=== PATIENT | female | born 1955 | race African-American/Black ===

== ENCOUNTER 2019-07-26 21:01 | Inpatient (IN) | payer BC ==
[2019-07-26] MEDS ORDERED: ACETAMINOPHEN 325 MG TABLET PO ONE (21:22)
[2019-07-26 21:38] LABS: HEMATOCRIT 39.2 % (36.0-47.0); HEMOGLOBIN 13.3 g/dL (12.0-15.5); MEAN CORPUSCULAR HEMOGLOBIN 28.9 pg (27.0-33.4); MEAN CORPUSCULAR HGB CONC 33.9 g/dL (32.0-36.0); MEAN CORPUSCULAR VOLUME 86 fl (80-97); PLATELET COUNT 260 10^3/uL (150-450); RED BLOOD COUNT 4.58 10^6/uL (3.72-5.28); RED CELL DISTRIBUTION WIDTH 14.7 % (11.5-14.0); WHITE BLOOD COUNT 21.4 10^3/uL (4.0-10.5)
[2019-07-26 21:41] LABS: APPEARANCE,URINE CLOUDY; BILIRUBIN,URINE NEGATIVE (NEGATIVE); COLOR,URINE DARK YELLOW; GLUCOSE, URINE NEGATIVE (NEGATIVE); KETONES,URINE TRACE mg/dL (NEGATIVE); PROTEIN,URINE >=500 mg/dL (NEGATIVE); URINE SPECIFIC GRAVITY 1.012; UROBILINOGEN,URINE NEGATIVE mg/dL (<2.0)
[2019-07-26 22:05] LABS: ABSOLUTE LYMPHOCYTES# (MANUAL) 3.2 10^3/uL (0.5-4.7); ABSOLUTE MONOCYTES # (MANUAL) 1.3 10^3/uL (0.1-1.4); BASOPHILS % (MANUAL) 0 % (0-2); EOSINOPHILS % (MANUAL) 0 % (0-6); LYMPHOCYTES % (MANUAL) 15 % (13-45); MONOCYTES % (MANUAL) 6 % (3-13); SEGMENTED NEUTROPHILS % (MAN) 79 % (42-78); TOTAL CELLS COUNTED 100
[2019-07-26 22:06] LABS: ANISOCYTOSIS SLIGHT; OVALOCYTES SLIGHT; PLATELET COMMENT ADEQUATE; POIKILOCYTOSIS SLIGHT; TEAR DROP CELLS SLIGHT; TOXIC GRANULATION 1+; TOXIC VACUOLATION PRESENT
[2019-07-26] MEDS ORDERED: NORMAL SALINE 1000 ML 2,000 ML IV PRN (22:07)
--- NOTE | 2019-07-26 22:20 | RADIOLOGY REPORT (SQ) ---
CLINICAL INDICATION: fever. TECHNIQUE: A single portable AP view was obtained of the chest at 2203 hours. COMPARISON: None. FINDINGS: The cardiomediastinal silhouette is prominent. The lungs demonstrate streaky airspace disease right base. No evidence of effusion or pneumothorax. The visualized bones are unremarkable. Chronic parenchymal lung change. IMPRESSION: Streaky airspace disease right base, of unknown chronicity.
--- NOTE | 2019-07-26 22:21 | ER Document Report ---
ED General - General Chief Complaint: Fever Stated Complaint: FEVER AND ALTERED MENTAL STATUS Time Seen by Provider: 07/26/19 22:05 Mode of Arrival: Medic Information source: Patient Notes: 63-year-old woman presents to the emergency department with a history of passed a kidney stone yesterday, she states that she began feeling sick soon afterwards. Today she was noted by family to have altered mental status presents with a fever 104 rectal and decreased responsiveness. - Related Data Allergies/Adverse Reactions: No Known Allergies Allergy (Unverified 07/26/19 21:30) Past Medical History - Social History Smoking Status: Unknown if Ever Smoked Family History: Reviewed & Not Pertinent Patient has homicidal ideation: No Review of Systems - Review of Systems Notes: Constitutional: + Fever. HENT: Negative for sore throat. Eyes: Negative for visual changes. Cardiovascular: Negative for chest pain. Respiratory: Negative for shortness of breath. Gastrointestinal: Negative for abdominal pain, vomiting or diarrhea. Genitourinary: Negative for dysuria. Musculoskeletal: Negative for back pain. Skin: Negative for rash. Neurological: Negative for headaches, weakness or numbness. 10 point ROS negative except as marked above and in HPI. Physical Exam - Vital signs Vitals: Resp Pulse Ox 24 H 98 07/26/19 21:06 07/26/19 21:06 - Notes Notes: PHYSICAL EXAMINATION: Physical Exam: General: Ill appearing 63-year-old woman in no acute distress HEENT: NC/AT, pupils equal round and reactive to light, MM moist,nares clear, oropharynx clear, airway patent Neck: supple, no adenopathy, no masses. Good range of motion Lungs: clear, no wheezing, no rales no rhonchi CVS: Tachycardic rate and rhythm no murmur gallop or rub Abdomen: Soft, active, nontender, no masses, no hepatosplenomegaly Ext: No edema, clubbing or cyanosis. Neuro: Alert and responsive, moving all 4 extremities on command, cranial nerves intact, no focal findings Skin: Intact no open lesions, no rash PSYCH: Normal mood, normal affect. Course - Re-evaluation Re-evalutation: 07/26/19 22:07 63-year-old who presents with altered mental status and fever, sepsis evaluation begun. Patient has received a total of 3 L of normal saline IV, given Zosyn, blood pressure stable, lactate 2.3. Chest x-ray clear urine reveals a signs of infection, CT scan is performed to exclude a intra-extrarenal signs of infection. 07/27/19 03:44 I discussed the patient with Dr. Horne, will admit the patient to the IMCU if CT scan is not remarkable for perirenal abscess or signs of obstruction. - Vital Signs Vital signs: Temp Pulse Resp BP Pulse Ox 98.7 F 76 21 H 149/76 H 98 07/28/19 11:59 07/28/19 11:59 07/28/19 11:59 07/28/19 11:59 07/28/19 11:59 - Laboratory Result Diagrams: 07/28/19 04:50 07/28/19 04:50 Laboratory results interpreted by me: 07/26/19 07/26/19 07/26/19 20:37 21:00 22:04 WBC 21.4 H RDW 14.7 H Seg Neuts % (Manual) 79 H Abs Neuts (Manual) 16.9 H BUN Glucose POC Glucose 165 H Lactic Acid Urine Protein >=500 H Urine Ketones TRACE H Urine Blood LARGE H Leukocyte Esterase Rfl LARGE H 07/26/19 07/26/19 07/27/19 22:13 22:15 04:02 WBC RDW Seg Neuts % (Manual) Abs Neuts (Manual) BUN 21 H Glucose 148 H POC Glucose Lactic Acid 2.3 H 2.5 H Urine Protein Urine Ketones Urine Blood Leukocyte Esterase Rfl - Diagnostic Test Radiology reviewed: Image reviewed, Reports reviewed - Chest x-ray: No acute cardiopulmonary findings. CT renal scan: Mild left hydronephrosis with out definite identifiable cause or ureteral stone. There is also left perinephric stranding. Findings may be related to a recently passed left sided stone versus left renal infection and correlate with urinalysis. Critical Care Note - Critical Care Note Total time excluding time spent on procedures (mins): 60 - Critical care time spent obtaining history from patient or surrogate, discussions with consultants, development of treatment plan with patient or surrogate, evaluation of patient's response to treatment, examination of patient, ordering and performing treatments and interventions, ordering and review of laboratory studies, re- evaluation of patient's condition, ordering and review of radiographic studies and review of old charts Discharge - Discharge Clinical Impression: Sepsis Qualifiers: Sepsis type: sepsis due to unspecified organism Sepsis acute organ dysfunction status: unspecified Qualified Code(s): A41.9 - Sepsis, unspecified organism Urinary tract infection Qualifiers: Urinary tract infection type: site unspecified Hematuria presence: with hematuria Qualified Code(s): N39.0 - Urinary tract infection, site not specified Leukocytosis Qualifiers: Leukocytosis type: bandemia Qualified Code(s): D72.825 - Bandemia Condition: Stable Disposition: ADMITTED INPATIENT Admitting Provider: Ozzie (Hospitalist) Unit Admitted: [facility]
[2019-07-26 22:37] LABS: INTERNATIONAL RATION (INR) 1.17
[2019-07-26 22:47] LABS: VENOUS BLOOD BASE EXCESS -0.4 mmol/L; VENOUS BLOOD HCO3 24.6 mmol/L (20-32); VENOUS BLOOD PCO2 41.8 mmHg (35-63); VENOUS BLOOD PH 7.39 (7.30-7.42)
[2019-07-26 22:50] LABS: ALKALINE PHOSPHATASE 54 U/L (38-126); ANION GAP 10 (5-19); ASPARTATE AMINO TRANSFERASE 28 U/L (14-36); BILIRUBIN,DIRECT 0.1 mg/dL (0.0-0.4); BILIRUBIN,TOTAL 0.6 mg/dL (0.2-1.3); BLOOD UREA NITROGEN 21 mg/dL (7-20); CALCIUM 9.3 mg/dL (8.4-10.2); CARBON DIOXIDE 23 mmol/L (22-30); CHLORIDE 106 mmol/L (98-107); GLUCOSE 148 mg/dL (75-110); POTASSIUM 3.7 mmol/L (3.6-5.0); TOTAL PROTEIN 7.5 g/dL (6.3-8.2)
[2019-07-27] MEDS ORDERED: PIPERACILLIN/TAZOBACTAM 4.5 GM VIAL IV ONE ×2 (00:03→05:16)
[2019-07-27] MEDS: PIPERACILLIN SODIUM/TAZOBACTAM 4.5 GM in NORMAL SALINE 100 ML IV SCH ×4 (00:52→17:17)
[2019-07-27] MEDS ORDERED: HYDRALAZINE HCL INJ/PF 20 MG/1 ML SDV IV PRN (03:42)
[2019-07-27] MEDS ORDERED: NORMAL SALINE 1000 ML 1,000 ML IV ONE (03:42)
[2019-07-27] MEDS ORDERED: MAGNESIUM HYDROXIDE SUSP 30 ML UDCUP PO PRN (03:43)
[2019-07-27] MEDS ORDERED: ONDANSETRON HCL INJ/PF 4 MG/2 ML SDV IV PRN (03:43)
[2019-07-27] MEDS ORDERED: IPRATROPIUM/ALBUTEROL 0.5-2.5 MG/3 ML AMPUL NEB PRN (03:43)
[2019-07-27] MEDS ORDERED: MAG HYDROX/AL HYDROX/SIMETH SUSP 30 ML UDCUP PO PRN (03:43)
[2019-07-27] MEDS: ACETAMINOPHEN 325 MG TABLET PO PRN ×3 (04:15→20:01)
--- NOTE | 2019-07-27 04:27 | PDOC H&P ---
History of Present Illness Admission Date/PCP: ALINA COTTON MD Patient complains of: Fever and altered mental status History of Present Illness: MINDY JERNIGAN is a 63 year old female with an unclear past medical history who presents 24 hours after the onset of left-sided sharp radiating flank pain. She develops fever with altered mental status noted by her son and referred to the emergency department for evaluation. In the emergency department she is found to have fever of 103.1, tachycardia and confusion. Labs reveal leukocytosis and pyuria with large blood, CT abdomen pelvis reveals perinephric stranding to the left side without stone, abscess or hydronephrosis. She is started on Zosyn, Tylenol and IV fluid and then referred to the hospitalist for admission. Past Medical History Medical History: Other - Unknown altered mental status Social History Information Source: Patient, Emergency Med Personnel, REPLACED BY [facility] Records Lives with: Family Smoking Status: Unknown if Ever Smoked - Advance Directive Resuscitation Status: Full Code Family History Family History: denies: None - Unobtainable Parental Family History Reviewed: No - Unobtainable Children Family History Reviewed: No - Unobtainable Sibling(s) Family History Reviewed.: No - Unobtainable Medication/Allergy Allergies/Adverse Reactions: No Known Allergies Allergy (Unverified 07/26/19 21:30) Review of Systems ROS unobtainable: Due to mental status Physical Exam Vital Signs: Temp Pulse Resp BP Pulse Ox 103.0 F H 39 H 171/89 H 97 07/27/19 02:24 07/27/19 03:31 07/27/19 03:31 07/27/19 01:46 Intake & Output 07/25/19 07/26/19 07/27/19 11:59 11:59 11:59 Intake Total 2100 Balance 2100 Weight 81.647 kg General appearance: PRESENT: disheveled, severe distress, well-developed, well- nourished Head exam: PRESENT: atraumatic, normocephalic Eye exam: PRESENT: conjunctiva pink, EOMI, PERRLA. ABSENT: scleral icterus Ear exam: PRESENT: normal external ear exam Mouth exam: PRESENT: dry mucosa, neck supple, tongue midline Neck exam: ABSENT: carotid bruit, JVD, lymphadenopathy, thyromegaly Respiratory exam: PRESENT: accessory muscle use, clear to auscultation kamari, tachypnea. ABSENT: rales, rhonchi, wheezes Cardiovascular exam: PRESENT: tachycardia. ABSENT: diastolic murmur, rubs, systolic murmur Pulses: PRESENT: normal dorsalis pedis pul Vascular exam: PRESENT: normal capillary refill GI/Abdominal exam: PRESENT: hypoactive bowel sounds, normal bowel sounds, soft, tenderness - Left lower quadrant. ABSENT: distended, guarding, mass, organolmegaly, rebound Rectal exam: PRESENT: deferred Extremities exam: PRESENT: full ROM. ABSENT: calf tenderness, clubbing, pedal edema Neurological exam: PRESENT: alert, altered, awake, oriented to person, CN II-XII grossly intact. ABSENT: motor sensory deficit Psychiatric exam: PRESENT: unusual affect. ABSENT: homicidal ideation, suicidal ideation Skin exam: PRESENT: dry, intact, warm. ABSENT: cyanosis, rash Results Laboratory Results: 07/26/19 20:37 07/26/19 22:13 07/26/19 07/26/19 07/26/19 20:37 20:37 21:00 WBC 21.4 H RBC 4.58 Hgb 13.3 Hct 39.2 MCV 86 MCH 28.9 MCHC 33.9 RDW 14.7 H Plt Count 260 Seg Neutrophils % Not Reportable VBG pH VBG pCO2 VBG HCO3 VBG Base Excess Sodium Cancelled Potassium Cancelled Chloride Cancelled Carbon Dioxide Cancelled Anion Gap Cancelled BUN Cancelled Creatinine Cancelled Est GFR ( Amer) Cancelled Est GFR (Non-Af Amer) Cancelled Glucose Cancelled Lactic Acid Calcium Cancelled Total Bilirubin Cancelled AST Cancelled Alkaline Phosphatase Cancelled Total Protein Cancelled Albumin Cancelled Urine Color DARK YELLOW Urine Appearance CLOUDY Urine pH 5.0 Ur Specific [place] 1.012 Urine Protein >=500 H Urine Glucose (UA) NEGATIVE Urine Ketones TRACE H Urine Blood LARGE H Urine RBC (Auto) 78 07/26/19 07/26/19 07/26/19 22:13 22:15 22:15 WBC RBC Hgb Hct MCV MCH MCHC RDW Plt Count Seg Neutrophils % VBG pH 7.39 VBG pCO2 41.8 VBG HCO3 24.6 VBG Base Excess -0.4 Sodium 139.1 Potassium 3.7 Chloride 106 Carbon Dioxide 23 Anion Gap 10 BUN 21 H Creatinine 0.90 Est GFR ( Amer) > 60 Est GFR (Non-Af Amer) Glucose 148 H Lactic Acid 2.3 H Calcium 9.3 Total Bilirubin 0.6 AST 28 Alkaline Phosphatase 54 Total Protein 7.5 Albumin 4.0 Urine Color Urine Appearance Urine pH Ur Specific [place] Urine Protein Urine Glucose (UA) Urine Ketones Urine Blood Urine RBC (Auto) 07/27/19 07/27/19 00:50 03:30 WBC RBC Hgb Hct MCV MCH MCHC RDW Plt Count Seg Neutrophils % VBG pH VBG pCO2 VBG HCO3 VBG Base Excess Sodium Potassium Chloride Carbon Dioxide Anion Gap BUN Creatinine Est GFR ( Amer) Est GFR (Non-Af Amer) Glucose Lactic Acid 1.0 Cancelled Calcium Total Bilirubin AST Alkaline Phosphatase Total Protein Albumin Urine Color Urine Appearance Urine pH Ur Specific [place] Urine Protein Urine Glucose (UA) Urine Ketones Urine Blood Urine RBC (Auto) Impressions: Chest X-Ray 07/26/19 21:22 IMPRESSION: Streaky airspace disease right base, of unknown chronicity. Assessment and Plan - Diagnosis (1) Acute pyelonephritis Is this a current diagnosis for this admission?: Yes Plan: Complicated by nephrolithiasis, no evidence for abscess, hydronephrosis or retained stone. IV fluid challenge, empiric antibiotics, follow-up lactic acid, CBC, blood and urine culture. (2) Sepsis Qualifiers: Sepsis type: sepsis due to unspecified organism Sepsis acute organ dys function status: unspecified Qualified Code(s): A41.9 - Sepsis, unspecified organism Is this a current diagnosis for this admission?: Yes Plan: IV fluid challenge, empiric antibiotics, follow-up lactic acid, CBC, blood and urine culture (3) Acute encephalopathy Is this a current diagnosis for this admission?: Yes Plan: Secondary to sepsis and acute illness. Supportive care
--- NOTE | 2019-07-27 05:42 | RADIOLOGY REPORT (SQ) ---
CT abdomen and pelvis without contrast on 07/27/2019 at 2:48 AM CLINICAL INDICATION: Kidney stones, back pain, fever TECHNIQUE: Multiple axial images are obtained throughout the abdomen and pelvis without the administration of contrast. This exam was performed according to our departmental dose-optimization program, which includes automated exposure control, adjustment of the mA and/or kV according to patient size and/or use of iterative reconstruction technique. Total DLP is 733.12 mGy*cm. COMPARISON: 11/01/2018 FINDINGS: Abdomen: The lung bases are clear. There is again noted right renal cortical scarring. There is mild left hydronephrosis without left ureteral stone. There is left perinephric stranding. The findings could be related to recently passed left-sided stone versus infection and please correlate with urinalysis. There are nonobstructing stones in the lower pole of the left kidney. There are stable phleboliths in the left abdomen, for example calcification in the left abdomen on axial image 37 is not within the ureter but adjacent to the ureter. The unenhanced solid abdominal organs are otherwise unremarkable. There is no abdominal adenopathy. There is no free fluid or free air within the abdomen. There is a small umbilical hernia containing only fat. The abdominal portion of the GI tract is unremarkable. Pelvis: Pelvic organs appear unremarkable by CT. A few calcifications are noted in the pelvis superior to the bladder that likely represent phleboliths. No free fluid is noted in the pelvis. There is no pelvic adenopathy. Pelvic portion of the GI tract including the appendix is unremarkable. Degenerative changes are noted in the spine. IMPRESSION: 1. Mild left hydronephrosis without definite identifiable cause with no ureteral stones. There is also left perinephric stranding. Findings may be related to recently passed left-sided stone versus left renal infection and please correlate with urinalysis. 2. Left nephrolithiasis.
[2019-07-27] MEDS: HEPARIN SOD (PORCINE) 5,000 UNIT/ML 1 ML VIAL SUBCUT SCH ×3 (06:33→21:30)
[2019-07-27 08:29] LABS: ANION GAP 7 (5-19); BLOOD UREA NITROGEN 16 mg/dL (7-20); CALCIUM 8.3 mg/dL (8.4-10.2); CARBON DIOXIDE 24 mmol/L (22-30); CHLORIDE 109 mmol/L (98-107); GLUCOSE 134 mg/dL (75-110); POTASSIUM 3.2 mmol/L (3.6-5.0)
--- NOTE | 2019-07-27 09:57 | EKG REPORT ---
SEVERITY:- ABNORMAL ECG - SINUS RHYTHM PROBABLE LEFT ATRIAL ABNORMALITY NONSPECIFIC REPOLARIZATION ABNORMALITIES : Confirmed by: Zeeshan Roche MD 27-Jul-2019 09:56:42
--- NOTE | 2019-07-27 10:44 | Progress Note ---
Provider Note Provider Note: Patient comfortable, afebrile, starting to put out a little bit of urine. Appetite is poor. Vital signs stable. We will continue to monitor.
[2019-07-27] MEDS: DOCUSATE SODIUM 100 MG CAPSULE PO SCH ×2 (11:26→17:16)
[2019-07-27] MEDS: NORMAL SALINE 1000 ML 1,000 ML IV PRN ×2 (12:12→17:17)
[2019-07-28] MEDS: PIPERACILLIN SODIUM/TAZOBACTAM 4.5 GM in NORMAL SALINE 100 ML IV SCH ×5 (00:36→23:39)
[2019-07-28] MEDS: HEPARIN SOD (PORCINE) 5,000 UNIT/ML 1 ML VIAL SUBCUT SCH ×4 (05:40→21:22)
[2019-07-28 06:25] LABS: ABSOLUTE LYMPHOCYTES (AUTO) 0.9 10^3/uL (0.5-4.7); ABSOLUTE MONOCYTES (AUTO) 0.8 10^3/uL (0.1-1.4); ABSOLUTE NEUT (AUTO) 10.8 10^3/uL (1.7-8.2); BASOPHILS % (AUTO) 0.4 % (0-2); HEMATOCRIT 31.5 % (36.0-47.0); LYMPHOCYTES % (AUTO) 6.9 % (13-45); MEAN CORPUSCULAR HEMOGLOBIN 28.7 pg (27.0-33.4); MEAN CORPUSCULAR HGB CONC 33.7 g/dL (32.0-36.0); MEAN CORPUSCULAR VOLUME 85 fl (80-97); MONOCYTES % (AUTO) 6.1 % (3-13); PLATELET COUNT 150 10^3/uL (150-450); RED CELL DISTRIBUTION WIDTH 14.9 % (11.5-14.0); SEGMENTED NEUTROPHILS % (AUTO) 86.6 % (42-78); TOTAL CELLS COUNTED % (AUTO) 100 %; WHITE BLOOD COUNT 12.5 10^3/uL (4.0-10.5)
[2019-07-28 06:35] LABS: HEMOGLOBIN 10.6 g/dL (12.0-15.5)
[2019-07-28 06:46] LABS: ANION GAP 7 (5-19); BLOOD UREA NITROGEN 15 mg/dL (7-20); CALCIUM 8.2 mg/dL (8.4-10.2); CARBON DIOXIDE 23 mmol/L (22-30); CHLORIDE 112 mmol/L (98-107); GLUCOSE 108 mg/dL (75-110); POTASSIUM 3.7 mmol/L (3.6-5.0)
[2019-07-28] MEDS: DOCUSATE SODIUM 100 MG CAPSULE PO SCH ×2 (09:02→17:48)
[2019-07-28] MEDS: ACETAMINOPHEN 325 MG TABLET PO PRN (10:32)
--- NOTE | 2019-07-28 12:14 | CDI QUERY ---
CDI Query CDI Review: Dear Provider, Please SPECIFY & document in progress notes and D/C summary if you agree with the clinical findings: ACUTE METABOLIC ENCEPHALOPATHY? ACUTE TOXIC ENCEPHALOPATHY? OTHER SPECIFIED ENCEPHALOPATHY? Progress notes state: ACUTE ENCEPHALOPATHY
--- NOTE | 2019-07-28 14:37 | PDOC PROGRESS REPORT ---
Subjective Progress Note for:: 07/28/19 Subjective:: No adverse events overnight. No new complaints. She does not feel nauseated but her appetite is still poor. She still sleeping a lot but she does wake up to interact and answer questions. No fevers. Reason For Visit: PYELONOPHRITIS Physical Exam Vital Signs: Temp Pulse Resp BP Pulse Ox 98.7 F 76 21 H 149/76 H 98 07/28/19 11:59 07/28/19 11:59 07/28/19 11:59 07/28/19 11:59 07/28/19 11:59 Intake & Output 07/27/19 07/28/19 07/29/19 06:59 06:59 06:59 Intake Total 3100 2550 572 Output Total 200 1460 400 Balance 2900 1090 172 Weight 77.6 kg 79.5 kg General appearance: PRESENT: no acute distress, cooperative, disheveled Respiratory exam: PRESENT: clear to auscultation kamari, symmetrical, unlabored. ABSENT: accessory muscle use, chest wall tenderness, crackles, prolonged expir atory phas, retraction, rhonchi, tachypnea, wheezes Cardiovascular exam: PRESENT: RRR, +S1, +S2 Pulses: PRESENT: normal carotid pulses Vascular exam: PRESENT: normal capillary refill GI/Abdominal exam: PRESENT: normal bowel sounds, soft. ABSENT: distended, guarding, rebound, tenderness Extremities exam: ABSENT: clubbing, pedal edema Musculoskeletal exam: PRESENT: normal inspection. ABSENT: deformity Neurological exam: PRESENT: awake, oriented to person, oriented to place, oriented to situation Psychiatric exam: PRESENT: flat affect Skin exam: PRESENT: dry, warm Results Laboratory Results: 07/28/19 04:50 07/28/19 04:50 07/28/19 07/28/19 04:50 04:50 WBC 12.5 H RBC 3.70 L Hgb 10.6 L D Hct 31.5 L MCV 85 MCH 28.7 MCHC 33.7 RDW 14.9 H Plt Count 150 Seg Neutrophils % 86.6 H Sodium 142.2 Potassium 3.7 Chloride 112 H Carbon Dioxide 23 Anion Gap 7 BUN 15 Creatinine 0.70 Est GFR ( Amer) > 60 Glucose 108 Calcium 8.2 L 07/26/19 21:00 Catheterized Urine Urine Culture - Final Escherichia Coli Impressions: Chest X-Ray 07/26/19 21:22 IMPRESSION: Streaky airspace disease right base, of unknown chronicity. Abdomen/Pelvis CT 07/27/19 00:50 IMPRESSION: 1. Mild left hydronephrosis without definite identifiable cause with no ureteral stones. There is also left perinephric stranding. Findings may be related to recently passed left-sided stone versus left renal infection and please correlate with urinalysis. 2. Left nephrolithiasis. Assessment and Plan - Diagnosis (1) Acute pyelonephritis Is this a current diagnosis for this admission?: Yes Plan: This was confirmed on CT scan. She has an E. coli growing out of the urine. Blood cultures are also showing a gram-negative, awaiting confirmation that is the same organism that is in the urine. She continues on Rocephin. (2) Sepsis Qualifiers: Sepsis type: Escherichia coli Sepsis acute organ dysfunction status: without acute organ dysfunction Qualified Code(s): A41.51 - Sepsis due to Escherichia coli [E. coli] Is this a current diagnosis for this admission?: Yes Plan: As noted above. Now afebrile. No evidence of organ dysfunction. (3) Bacteremia due to Gram-negative bacteria Is this a current diagnosis for this admission?: Yes Plan: Awaiting confirmation that it is the same organism that is in the urine. If so, she will be able to take 2 weeks of oral antibiotics, possibly Keflex. (4) Acute metabolic encephalopathy Is this a current diagnosis for this admission?: Yes Plan: Resolved - Time Time Spent with patient: 15-24 minutes
[2019-07-29] MEDS: HEPARIN SOD (PORCINE) 5,000 UNIT/ML 1 ML VIAL SUBCUT SCH (06:03)
[2019-07-29] MEDS: PIPERACILLIN SODIUM/TAZOBACTAM 4.5 GM in NORMAL SALINE 100 ML IV SCH ×2 (06:03→11:45)
[2019-07-29 08:36] LABS: HEMATOCRIT 30.8 % (36.0-47.0); HEMOGLOBIN 10.6 g/dL (12.0-15.5); MEAN CORPUSCULAR HEMOGLOBIN 29.1 pg (27.0-33.4); MEAN CORPUSCULAR HGB CONC 34.4 g/dL (32.0-36.0); MEAN CORPUSCULAR VOLUME 85 fl (80-97); PLATELET COUNT 158 10^3/uL (150-450); RED BLOOD COUNT 3.63 10^6/uL (3.72-5.28); RED CELL DISTRIBUTION WIDTH 14.5 % (11.5-14.0); WHITE BLOOD COUNT 8.3 10^3/uL (4.0-10.5)
[2019-07-29 09:01] LABS: ANION GAP 7 (5-19); BLOOD UREA NITROGEN 17 mg/dL (7-20); CALCIUM 9.1 mg/dL (8.4-10.2); CARBON DIOXIDE 26 mmol/L (22-30); CHLORIDE 107 mmol/L (98-107); GLUCOSE 147 mg/dL (75-110); POTASSIUM 3.9 mmol/L (3.6-5.0)
[2019-07-29] MEDS: DOCUSATE SODIUM 100 MG CAPSULE PO SCH (09:19)
--- NOTE | 2019-07-29 12:29 | PDOC DISCHARGE SUMMARY ---
Impression - Admit/DC Date/PCP Admission Date/Primary Care Provider: 07/27/19 04:30 ALINA COTTON MD Discharge Date: 07/29/19 - Discharge Diagnosis (1) Acute encephalopathy Is this a current diagnosis for this admission?: Yes (2) Acute metabolic encephalopathy Is this a current diagnosis for this admission?: Yes (3) Acute pyelonephritis Is this a current diagnosis for this admission?: Yes (4) Bacteremia due to Gram-negative bacteria Is this a current diagnosis for this admission?: Yes - Additional Information Resuscitation Status: Full Code Discharge Diet: As Tolerated Discharge Activity: Activity As Tolerated Referrals: ALINA COTTON MD [Primary Care Provider] - Follow up as needed Prescriptions: Ciprofloxacin HCl [Cipro] 500 mg PO BID #10 tablet Home Medications: Brimonidine Tartrate [Alphagan P] 1 drop OU BID 07/28/19 Ibuprofen [Motrin 800 mg Tablet] 800 mg PO TID 07/28/19 Prednisolone Acetate [Pred Forte] 1 drop OU BID 07/28/19 Tamsulosin HCl [Flomax 0.4 mg Cap.sr] 0.4 mg PO DAILY 07/28/19 Ciprofloxacin HCl [Cipro] 500 mg PO BID #10 tablet 07/29/19 History of Present Illiness History of Present Illness: MINDY JERNIGAN is a 63 year old female with an unclear past medical history who presents 24 hours after the onset of left-sided sharp radiating flank pain. She develops fever with altered mental status noted by her son and referred to the emergency department for evaluation. In the emergency department she is found to have fever of 103.1, tachycardia and confusion. Labs reveal leukocytosis and pyuria with large blood, CT abdomen pelvis reveals perinephric stranding to the left side without stone, abscess or hydronephrosis. She is started on Zosyn, Tylenol and IV fluid and then referred to the hospitalist for admission. Hospital Course Hospital Course: CT scan confirmed pyelonephritis. Urine culture and blood culture positive for E. coli. She was initially started on IV Rocephin. She will be discharged on oral Cipro. Her mental status is currently normal and encephalopathy resolved. Sepsis resolved. She wants to go home today. Physical Exam Vital Signs: Temp Pulse Resp BP Pulse Ox 98.4 F 59 L 19 151/72 H 97 07/29/19 07:21 07/29/19 07:21 07/29/19 07:21 07/29/19 07:21 07/29/19 07:21 Intake & Output 07/28/19 07/29/19 07/30/19 06:59 06:59 06:59 Intake Total 2550 1763 Output Total 1460 1950 Balance 1090 -187 Weight 175 lb 4.28 oz 173 lb 15.115 oz General appearance: PRESENT: no acute distress, cooperative Head exam: PRESENT: atraumatic, normocephalic Eye exam: PRESENT: EOMI, PERRLA Mouth exam: PRESENT: moist, neck supple, tongue midline Neck exam: ABSENT: meningismus, tenderness, tracheostomy Respiratory exam: PRESENT: clear to auscultation kamari. ABSENT: accessory muscle use Cardiovascular exam: PRESENT: RRR GI/Abdominal exam: PRESENT: normal bowel sounds. ABSENT: tenderness Rectal exam: PRESENT: deferred Neurological exam: PRESENT: alert, awake, oriented to person, oriented to place, oriented to time, oriented to situation Results Laboratory Results: WBC 8.3 10^3/uL (4.0-10.5) 07/29/19 08:28 RBC 3.63 10^6/uL (3.72-5.28) L 07/29/19 08:28 Hgb 10.6 g/dL (12.0-15.5) L 07/29/19 08:28 Hct 30.8 % (36.0-47.0) L 07/29/19 08:28 MCV 85 fl (80-97) 07/29/19 08:28 MCH 29.1 pg (27.0-33.4) 07/29/19 08:28 MCHC 34.4 g/dL (32.0-36.0) 07/29/19 08:28 RDW 14.5 % (11.5-14.0) H 07/29/19 08:28 Plt Count 158 10^3/uL (150-450) 07/29/19 08:28 Lymph % (Auto) 6.9 % (13-45) L 07/28/19 04:50 Garza % (Auto) 6.1 % (3-13) 07/28/19 04:50 Eos % (Auto) 0.0 % (0-6) 07/28/19 04:50 Baso % (Auto) 0.4 % (0-2) 07/28/19 04:50 Absolute Neuts (auto) 10.8 10^3/uL (1.7-8.2) H 07/28/19 04:50 Absolute Lymphs (auto) 0.9 10^3/uL (0.5-4.7) 07/28/19 04:50 Absolute Monos (auto) 0.8 10^3/uL (0.1-1.4) 07/28/19 04:50 Absolute Eos (auto) 0.0 10^3/uL (0.0-0.6) 07/28/19 04:50 Absolute Basos (auto) 0.0 10^3/uL (0.0-0.2) 07/28/19 04:50 Total Counted 100 07/26/19 20:37 Seg Neutrophils % 86.6 % (42-78) H 07/28/19 04:50 Seg Neuts % (Manual) 79 % (42-78) H 07/26/19 20:37 Lymphocytes % (Manual) 15 % (13-45) 07/26/19 20:37 Monocytes % (Manual) 6 % (3-13) 07/26/19 20:37 Eosinophils % (Manual) 0 % (0-6) 07/26/19 20:37 Basophils % (Manual) 0 % (0-2) 07/26/19 20:37 Abs Neuts (Manual) 16.9 10^3/uL (1.7-8.2) H 07/26/19 20:37 Abs Lymphs (Manual) 3.2 10^3/uL (0.5-4.7) 07/26/19 20:37 Abs Monocytes (Manual) 1.3 10^3/uL (0.1-1.4) 07/26/19 20:37 Absolute Eos (Manual) 0.0 10^3/uL (0.0-0.6) 07/26/19 20:37 Abs Basophils (Manual) 0.0 10^3/uL (0.0-0.2) 07/26/19 20:37 Toxic Granulation 1+ 07/26/19 20:37 Toxic Vacuolation PRESENT 07/26/19 20:37 Platelet Comment ADEQUATE 07/26/19 20:37 Poikilocytosis SLIGHT 07/26/19 20:37 Anisocytosis SLIGHT 07/26/19 20:37 Tear Drop Cells SLIGHT 07/26/19 20:37 Ovalocytes SLIGHT 07/26/19 20:37 PT 15.0 SEC (11.4-15.4) 07/26/19 22:15 INR 1.17 07/26/19 22:15 INR (Anticoag Therapy) Cancelled 07/26/19 20:37 VBG pH 7.39 (7.30-7.42) 07/26/19 22:15 VBG pCO2 41.8 mmHg (35-63) 07/26/19 22:15 VBG HCO3 24.6 mmol/L (20-32) 07/26/19 22:15 VBG Base Excess -0.4 mmol/L 07/26/19 22:15 Sodium 140.2 mmol/L (137-145) 07/29/19 08:28 Potassium 3.9 mmol/L (3.6-5.0) 07/29/19 08:28 Chloride 107 mmol/L (98-107) 07/29/19 08:28 Carbon Dioxide 26 mmol/L (22-30) 07/29/19 08:28 Anion Gap 7 (5-19) 07/29/19 08:28 BUN 17 mg/dL (7-20) 07/29/19 08:28 Creatinine 0.70 mg/dL (0.52-1.25) 07/29/19 08:28 Est GFR ( Amer) > 60 (>60) 07/29/19 08:28 Est GFR (Non-Af Amer) Cancelled 07/27/19 06:23 Est GFR (MDRD) Non-Af > 60 (>60) 07/29/19 08:28 Glucose 147 mg/dL (75-110) H 07/29/19 08:28 POC Glucose 165 mg/dL (70-110) H 07/26/19 22:04 Lactic Acid 2.5 mmol/L (0.7-2.1) H 07/27/19 04:02 Calcium 9.1 mg/dL (8.4-10.2) 07/29/19 08:28 Total Bilirubin 0.6 mg/dL (0.2-1.3) 07/26/19 22:13 Direct Bilirubin 0.1 mg/dL (0.0-0.4) 07/26/19 22:13 Neonat Total Bilirubin Not Reportable 07/26/19 22:13 Neonat Direct Bilirubin Not Reportable 07/26/19 22:13 Neonat Indirect Bili Not Reportable 07/26/19 22:13 AST 28 U/L (14-36) 07/26/19 22:13 ALT 16 U/L (<35) 07/26/19 22:13 Alkaline Phosphatase 54 U/L (38-126) 07/26/19 22:13 Total Protein 7.5 g/dL (6.3-8.2) 07/26/19 22:13 Albumin 4.0 g/dL (3.5-5.0) 07/26/19 22:13 EGFR Cancelled 07/27/19 06:23 Urine Color DARK YELLOW 07/26/19 21:00 Urine Appearance CLOUDY 07/26/19 21:00 Urine pH 5.0 (5.0-9.0) 07/26/19 21:00 Ur Specific [place] 1.012 07/26/19 21:00 Urine Protein >=500 mg/dL (NEGATIVE) H 07/26/19 21:00 Urine Glucose (UA) NEGATIVE mg/dL (NEGATIVE) 07/26/19 21:00 Urine Ketones TRACE mg/dL (NEGATIVE) H 07/26/19 21:00 Urine Blood LARGE (NEGATIVE) H 07/26/19 21:00 Urine Nitrite (Reflex) NEGATIVE (NEGATIVE) 07/26/19 21:00 Urine Bilirubin NEGATIVE (NEGATIVE) 07/26/19 21:00 Urine Urobilinogen NEGATIVE mg/dL (<2.0) 07/26/19 21:00 Leukocyte Esterase Rfl LARGE (NEGATIVE) H 07/26/19 21:00 Urine RBC (Auto) 78 /HPF 07/26/19 21:00 U Hyaline Cast (Auto) 4 /LPF 07/26/19 21:00 Urine Bacteria (Auto) 3+ /HPF 07/26/19 21:00 Urine WBC (Reflex) > 182 /HPF 07/26/19 21:00 Urine WBC Clumps MANY /HPF 07/26/19 21:00 Urine Mucus (Auto) FEW /LPF 07/26/19 21:00 Urine Yeast (Budding) PRESENT /HPF 07/26/19 21:00 Urine Ascorbic Acid NEGATIVE (NEGATIVE) 07/26/19 21:00 Impressions: Chest X-Ray 07/26/19 21:22 IMPRESSION: Streaky airspace disease right base, of unknown chronicity. Abdomen/Pelvis CT 07/27/19 00:50 IMPRESSION: 1. Mild left hydronephrosis without definite identifiable cause with no ureteral stones. There is also left perinephric stranding. Findings may be related to recently passed left-sided stone versus left renal infection and please correlate with urinalysis. 2. Left nephrolithiasis. Plan Time Spent: Less than 30 Minutes - 25 min Stroke Is this a Stroke Patient?: No Acute Heart Failure - Is this a Heart Failure Patient?: No
[2019-07-29 12:45] VITALS: BP 135/86
== END 2019-07-29 13:40 | disposition home or self-care (01) | DRG 689 ==
LOC: ER 21:01 → EH 07-27 04:30 → 3W 07-27 05:25
PROVIDERS: ADMIT Internal Medicine; ATTEND Family Medicine
DX: N10 Acute pyelonephritis (principal); G93.41 Metabolic encephalopathy; B96.20 Unspecified Escherichia coli [E. coli] as the cause of diseases classified elsewhere
CPT/HCPCS: 36415; 71045; 74176; 80048; 80053; 81001; 82803; 82962; 83605; 85025; 85027; 85610; 87040; 87077; 87086; 87088; 87186; 93005; 93010; 94799; 96361; 96365; 96375; 99291; J0360; J1644; J2405; J2543; J3490; J7030; J7050